=== PATIENT | male | born 1940 | race Caucasian/White ===

== ENCOUNTER 2022-01-17 17:34 | Inpatient (IN) ==
[2022-01-17 19:35] LABS: ABS Basophils 0.1 10^3/ul (0-0.2); ABS Lymphocytes 0.8 10^3/ul (1.0-4.8); ABS Monocytes 0.6 10^3/ul (0-0.8); ABS Neutrophils 7.8 10^3/ul (1.5-7.7); Eosinophil % 0.4 %; Hematocrit 50 % (42-52); Hemoglobin 16.5 g/dL (14.0-18.0); Lymphocyte % 8.9 %; Mean Corpuscular HGB Conc 33 g/dL (31-36); Mean Corpuscular Hemoglobin 30 pg (27-31); Mean Corpuscular Volume 91 fL (80-94); Mean Platelet Volume 7.6 fL (7.4-10.4); Platelet Count 280 10^3/uL (150-450); Red Blood Count 5.48 10^6 /uL (4.18-5.48); Red Cell Distribution Width 14 % (10-15); White Blood Count 9.3 10^3/uL (3.5-10.8)
[2022-01-17] MEDS ORDERED: NS 0.9% 1000 ml BAG 1,000 ML IV ONE (20:00)
[2022-01-17 20:01] LABS: ALT 10 U/L (7-52); AST 14 U/L (13-39); Acetaminophen < 15 mcg/mL; Albumin 4.2 g/dL (3.2-5.2); Albumin/Globulin Ratio 1.4 (1-3); Alcohol, S < 13 mg/dL (<13); Alkaline Phosphatase 102 U/L (35-149); Anion Gap 18 mmol/L (2-11); Blood Urea Nitrogen 22 mg/dL (6-24); CO2 Carbon Dioxide 17 mmol/L (22-32); Calcium 9.8 mg/dL (8.6-10.3); Chloride 98 mmol/L (101-111); Globulin 2.9 g/dL (2-4); Glucose 251 mg/dL (70-100); Potassium 4.3 mmol/L (3.5-5.0); Salicylate < 2.50 mg/dL (<30); Sodium 133 mmol/L (135-145); Total Protein 7.1 g/dL (6.4-8.9); eGFR CKD-EPI 41.7 (>60)
[2022-01-17 20:15] LABS: TSH Ultra Thyroid Stim Horm 1.82 mcIU/mL (0.34-5.60)
[2022-01-17 22:04] LABS: Venous Bicarbonate HCO3 16.8 mmol/L (24-28)
[2022-01-17 22:27] LABS: Urine Benzodiazepine Screen None Detected (None Detect); Urine Cannabinoids Screen None Detected (None Detect); Urine Opiates Screen None Detected (None Detect)
[2022-01-17 22:35] LABS: Urine Appearance Clear; Urine Bilirubin 1+ (Small) (Negative); Urine Color Yellow; Urine Glucose Trace (100mg/dL) (Negative); Urine Ketones 3+ (80mg/dL) (Negative)
[2022-01-17 22:36] LABS: Urine Specific Gravity 1.018 (1.002-1.030)
[2022-01-17 22:37] LABS: Urine Blood Trace (Intact) (Negative); Urine Nitrite Negative (Negative); Urine Protein Trace (Negative); Urine Urobilinogen 0.2 (Negative) (Negative); Urine pH 5.5 (5.0-9.0)
[2022-01-17 22:49] LABS: Urine Bacteria Absent (Absent); Urine Red Blood Cell Trace(0-2/hpf) (Absent); Urine Squamous Epithelial Cell Present (Absent); Urine White Blood Cell Trace(0-5/hpf) (Absent)
[2022-01-18 00:54] LABS: Magnesium 1.8 mg/dL (1.9-2.7)
[2022-01-18] MEDS ORDERED: NS 0.9% 250 ml 250 ML IV SCH (01:00)
[2022-01-18] MEDS ORDERED: Dextrose 50% Syringe 50 ml 25 GM/50 ML SYRINGE IV PUSH PRN (01:35)
[2022-01-18] MEDS ORDERED: Al Hydrox/Mg Hydrox/Simet LIQ 30 ML UDC PO PRN (01:35)
[2022-01-18] MEDS: Enoxaparin 40 MG/0.4 ML SYR SUBCUT SCH ×2 (02:34→20:52)
[2022-01-18] MEDS ORDERED: Magnesium Sulfate IV 1GM/100ML 1 GM/100 ML BAG IV ONE (07:51)
[2022-01-18] MEDS: Aspirin EC 81 mg TAB.EC (enteric coated) PO SCH (09:17)
[2022-01-18 09:23] LABS: ABS Eosinophils 0.1 10^3/ul (0-0.6); ABS Lymphocytes 1.2 10^3/ul (1.0-4.8); ABS Monocytes 0.7 10^3/ul (0-0.8); ABS Neutrophils 6.1 10^3/ul (1.5-7.7); Eosinophil % 1.2 %; Hematocrit 45 % (42-52); Lymphocyte % 15.2 %; Mean Corpuscular HGB Conc 33 g/dL (31-36); Mean Corpuscular Hemoglobin 30 pg (27-31); Mean Corpuscular Volume 91 fL (80-94); Mean Platelet Volume 7.3 fL (7.4-10.4); Nucleated Red Blood Cells % 0.1; Platelet Count 249 10^3/uL (150-450); Red Blood Count 4.97 10^6 /uL (4.18-5.48); Red Cell Distribution Width 14 % (10-15); White Blood Count 8.2 10^3/uL (3.5-10.8)
[2022-01-18 09:48] LABS: High Sensitivity Troponin 1 Hr 55 pg/mL (<20)
[2022-01-18 10:05] LABS: Calcium 8.7 mg/dL (8.6-10.3); Potassium 4.5 mmol/L (3.5-5.0); eGFR CKD-EPI 47.8 (>60)
[2022-01-19 05:27] LABS: ABS Eosinophils 0.1 10^3/ul (0-0.6); ABS Lymphocytes 1.1 10^3/ul (1.0-4.8); ABS Monocytes 0.7 10^3/ul (0-0.8); ABS Neutrophils 4.7 10^3/ul (1.5-7.7); Eosinophil % 1.5 %; Hematocrit 43 % (42-52); Hemoglobin 14.4 g/dL (14.0-18.0); Lymphocyte % 16.5 %; Mean Corpuscular HGB Conc 34 g/dL (31-36); Mean Corpuscular Hemoglobin 30 pg (27-31); Mean Corpuscular Volume 89 fL (80-94); Mean Platelet Volume 7.5 fL (7.4-10.4); Nucleated Red Blood Cells % 0.1; Platelet Count 224 10^3/uL (150-450); Red Blood Count 4.78 10^6 /uL (4.18-5.48); Red Cell Distribution Width 14 % (10-15); White Blood Count 6.6 10^3/uL (3.5-10.8)
[2022-01-19 05:43] LABS: Calcium 8.8 mg/dL (8.6-10.3); HDL Cholesterol 30.4 mg/dL; Magnesium 1.9 mg/dL (1.9-2.7); Potassium 3.8 mmol/L (3.5-5.0); eGFR CKD-EPI 49.4 (>60)
[2022-01-19] MEDS: Aspirin EC 81 mg TAB.EC (enteric coated) PO SCH (08:27)
[2022-01-19] MEDS ORDERED: Regadenoson 0.4 MG/5 ML SYRINGE ONE (13:07)
[2022-01-19] MEDS ORDERED: Aminophylline 25 MG/ML VIAL ONE (13:08)
[2022-01-19] MEDS: Enoxaparin 40 MG/0.4 ML SYR SUBCUT SCH (20:59)
[2022-01-20 05:53] LABS: Calcium 8.9 mg/dL (8.6-10.3); Potassium 3.9 mmol/L (3.5-5.0); eGFR CKD-EPI 47.4 (>60)
[2022-01-20] MEDS: Aspirin EC 81 mg TAB.EC (enteric coated) PO SCH (08:08)
[2022-01-20 17:25] LABS: Glucose Confirmatory 439 mg/dL (70-100)
[2022-01-20] MEDS: Enoxaparin 40 MG/0.4 ML SYR SUBCUT SCH (22:00)
[2022-01-21] MEDS: Aspirin EC 81 mg TAB.EC (enteric coated) PO SCH (17:26)
[2022-01-21] MEDS: Enoxaparin 40 MG/0.4 ML SYR SUBCUT SCH (20:21)
[2022-01-22] MEDS: Aspirin EC 81 mg TAB.EC (enteric coated) PO SCH (08:10)
[2022-01-22] MEDS: Enoxaparin 40 MG/0.4 ML SYR SUBCUT SCH (21:10)
[2022-01-23] MEDS: Aspirin EC 81 mg TAB.EC (enteric coated) PO SCH (08:05)
[2022-01-23] MEDS: Enoxaparin 40 MG/0.4 ML SYR SUBCUT SCH (20:55)
[2022-01-24] MEDS: Aspirin EC 81 mg TAB.EC (enteric coated) PO SCH (08:03)
[2022-01-24] MEDS ORDERED: NS 0.9% 1000 ml BAG 1,000 ML IV ONE (12:02)
[2022-01-24 13:17] LABS: ABS Basophils 0.1 10^3/ul (0-0.2); ABS Eosinophils 0.1 10^3/ul (0-0.6); ABS Lymphocytes 1.4 10^3/ul (1.0-4.8); ABS Monocytes 0.7 10^3/ul (0-0.8); ABS Neutrophils 5.7 10^3/ul (1.5-7.7); Eosinophil % 1.2 %; Hematocrit 44 % (42-52); Hemoglobin 14.6 g/dL (14.0-18.0); Mean Corpuscular HGB Conc 33 g/dL (31-36); Mean Corpuscular Hemoglobin 30 pg (27-31); Mean Corpuscular Volume 90 fL (80-94); Mean Platelet Volume 7.9 fL (7.4-10.4); Platelet Count 217 10^3/uL (150-450); Red Blood Count 4.88 10^6 /uL (4.18-5.48); Red Cell Distribution Width 14 % (10-15); White Blood Count 7.9 10^3/uL (3.5-10.8)
[2022-01-24 13:58] LABS: Albumin 3.4 g/dL (3.2-5.2); Albumin/Globulin Ratio 1.4 (1-3); Calcium 9.2 mg/dL (8.6-10.3); Globulin 2.4 g/dL (2-4); Magnesium 1.6 mg/dL (1.9-2.7); Phosphorus 3.3 mg/dL (2.5-5.0); Potassium 4.2 mmol/L (3.5-5.0); Total Bilirubin 0.6 mg/dL (0.2-1.0); Total Protein 5.8 g/dL (6.4-8.9); eGFR CKD-EPI 64.7 (>60)
[2022-01-24] MEDS ORDERED: Magnesium Sulf 4 GM/100 ML IV 4,000 MG/100 ML BAG IVPB ONE (15:50)
[2022-01-24] MEDS: Enoxaparin 40 MG/0.4 ML SYR SUBCUT SCH (21:16)
[2022-01-25] MEDS: Aspirin EC 81 mg TAB.EC (enteric coated) PO SCH (07:57)
[2022-01-25] MEDS: Enoxaparin 40 MG/0.4 ML SYR SUBCUT SCH (20:19)
[2022-01-26] MEDS: Aspirin EC 81 mg TAB.EC (enteric coated) PO SCH (07:29)
[2022-01-26] MEDS: Enoxaparin 40 MG/0.4 ML SYR SUBCUT SCH (21:37)
[2022-01-27] MEDS: Aspirin EC 81 mg TAB.EC (enteric coated) PO SCH (08:05)
[2022-01-27] MEDS ORDERED: Lactated Ringers 1000 ml BAG 1,000 ML IV ONE (11:09)
[2022-01-27] MEDS: Enoxaparin 40 MG/0.4 ML SYR SUBCUT SCH (19:56)
[2022-01-28] MEDS: Aspirin EC 81 mg TAB.EC (enteric coated) PO SCH (07:51)
[2022-01-28] MEDS: Enoxaparin 40 MG/0.4 ML SYR SUBCUT SCH (21:24)
[2022-01-29] MEDS: Aspirin EC 81 mg TAB.EC (enteric coated) PO SCH (08:58)
[2022-01-29] MEDS: Enoxaparin 40 MG/0.4 ML SYR SUBCUT SCH (21:40)
[2022-01-30] MEDS: Aspirin EC 81 mg TAB.EC (enteric coated) PO SCH (09:06)
[2022-01-30] MEDS: Enoxaparin 40 MG/0.4 ML SYR SUBCUT SCH (21:30)
[2022-01-31] MEDS: Aspirin EC 81 mg TAB.EC (enteric coated) PO SCH (07:58)
[2022-01-31] MEDS: Enoxaparin 40 MG/0.4 ML SYR SUBCUT SCH (20:46)
[2022-02-01] MEDS: Aspirin EC 81 mg TAB.EC (enteric coated) PO SCH (08:04)
[2022-02-01] MEDS: Enoxaparin 40 MG/0.4 ML SYR SUBCUT SCH (20:48)
[2022-02-02] MEDS: Aspirin EC 81 mg TAB.EC (enteric coated) PO SCH (08:02)
[2022-02-03] MEDS: Aspirin EC 81 mg TAB.EC (enteric coated) PO SCH (08:17)
[2022-02-04] MEDS ORDERED: Dextrose 50% Syringe 50 ml 25 GM/50 ML SYRINGE IV PUSH PRN (07:38)
[2022-02-04] MEDS: Aspirin EC 81 mg TAB.EC (enteric coated) PO SCH (10:00)
[2022-02-05] MEDS: Aspirin EC 81 mg TAB.EC (enteric coated) PO SCH (07:50)
[2022-02-06] MEDS: Aspirin EC 81 mg TAB.EC (enteric coated) PO SCH (09:09)
[2022-02-07] MEDS: Aspirin EC 81 mg TAB.EC (enteric coated) PO SCH (07:53)
[2022-02-08] MEDS: Aspirin EC 81 mg TAB.EC (enteric coated) PO SCH (07:49)
[2022-02-09] MEDS: Aspirin EC 81 mg TAB.EC (enteric coated) PO SCH (08:19)
[2022-02-10] MEDS: Aspirin EC 81 mg TAB.EC (enteric coated) PO SCH (08:09)
[2022-02-11] MEDS: Aspirin EC 81 mg TAB.EC (enteric coated) PO SCH (08:31)
[2022-02-12] MEDS: Aspirin EC 81 mg TAB.EC (enteric coated) PO SCH (09:47)
[2022-02-13] MEDS: Aspirin EC 81 mg TAB.EC (enteric coated) PO SCH (09:43)
[2022-02-14 07:43] VITALS: BP 127/49
[2022-02-14] MEDS: Aspirin EC 81 mg TAB.EC (enteric coated) PO SCH (07:52)
== END 2022-02-14 13:18 | disposition home health service (06) | DRG 885 ==
LOC: ED 17:34 → EDHOLD 17:34 → SUATTDRO 01-18 00:51 → MED 01-18 16:21 → BSU 01-20 18:36
PROVIDERS: ADMIT Internal Medicine; ATTEND Psychiatry & Neurology Psychiatry